=== PATIENT | male | born 1975 | race Caucasian/White ===

== ENCOUNTER 2017-02-22 16:01 | Emergency (ER) | payer OTHER ==
[2017-02-22 16:05] VITALS: BP 138/85; RESP 20; TEMP 97.8
[2017-02-22] MEDS ORDERED: ASPIRIN 81 MG CHEW PO STA (16:36)
[2017-02-22] MEDS ORDERED: SODIUM CHLORIDE 0.9% 500 ML IV STA (16:36)
[2017-02-22] MEDS ORDERED: MORPHINE SULFATE 2 MG/ML SYRINGE IVP STA (16:36)
[2017-02-22 16:39] VITALS: PULSE 85
--- NOTE | 2017-02-22 16:40 | ED ---
Chest Pain HPI - General Chief Complaint: Chest Pain Stated Complaint: Chest pain Time Seen by Provider: 02/22/17 16:16 Source: patient, RN notes reviewed Mode of arrival: ambulatory Limitations: no limitations - History of Present Illness Initial Comments: Patient is a 41-year-old male presents emergency room for evaluation of chest pain. Patient states he had an upper respiratory infection about a week and a half ago. Patient states last about 3 days. Patient states he is continuing to have a sharp midsternal chest pain that radiates to the left side. Patient states been having increasing mid sternal/left sided chest pain over the weekend. Patient states pain is worse whenever he takes a deep breath or moves. Patient states pain is worse when he sits down. Patient denies smoking. Patient states that he feels short of breath secondary to pain. Patient denies any cardiac history. Patient denies any significant past medical history. Patient denies any family cardiac history. Patient denies any cough. Patient states that he feels like his rib is broken and feels a pressure-like sensation over his chest. Patient states that having on and off headaches. Patient denies dizziness. Patient denies nausea or vomiting. Patient denies fevers or chills. Patient states he's never had pain like this in the past. - Related Data Home Medications Medication Instructions Recorded Confirmed Fish Oil Liquid 15 ml PO QAM 02/22/17 02/22/17 Potassium 198 mg PO BID 02/22/17 02/22/17 Previous Rx's Medication Instructions Recorded Ibuprofen [Motrin] 600 mg PO Q6HR PRN #20 tab 02/22/17 Allergies Allergy/AdvReac Type Severity Reaction Status Date / Time No Known Allergies Allergy Verified 02/22/17 16:28 Review of Systems ROS Statement: Those systems with pertinent positive or pertinent negative responses have been documented in the HPI. ROS Other: All systems not noted in ROS Statement are negative. EKG Findings - EKG Comments: EKG Findings:: Normal sinus rhythm, ventricular rate 82 bpm, TN interval 166 ms , QRS duration 102 ms, QT/QTC 372/434 ms, T-wave inversion in leads III and aVF Past Medical History Past Medical History: No Reported History History of Any Multi-Drug Resistant Organisms: None Reported Past Surgical History: No Surgical Hx Reported Past Psychological History: No Psychological Hx Reported Smoking Status: Never smoker Past Alcohol Use History: None Reported Past Drug Use History: None Reported General Exam - General Exam Comments Initial Comments: Sitting in exam room, no acute distress. Limitations: no limitations General appearance: alert, in no apparent distress Head exam: Present: atraumatic, normocephalic, normal inspection Eye exam: Present: normal appearance ENT exam: Present: normal exam Neck exam: Present: normal inspection Respiratory exam: Present: normal lung sounds bilaterally, chest wall tenderness (Reproducable midsternal and left sided anterior wall tenderness on palpation). Absent: respiratory distress Cardiovascular Exam: Present: regular rate, normal rhythm, normal heart sounds GI/Abdominal exam: Present: soft, normal bowel sounds. Absent: distended, tenderness, guarding, rebound, rigid Extremities exam: Present: normal inspection Back exam: Present: normal inspection Neurological exam: Present: alert, oriented X3, CN II-XII intact, normal gait Psychiatric exam: Present: normal affect, normal mood Skin exam: Present: warm, dry, intact, normal color. Absent: rash Course Vital Signs 02/22/17 02/22/17 16:02 16:39 Temperature 97.8 F Pulse Rate 84 Pulse Rate [ 85 Dbas ] Respiratory 20 Rate Blood Pressure 138/85 O2 Sat by Pulse 100 Oximetry Chest Pain MDM - MDM Patient is a 41-year-old male presents to the emergency room for evaluation of sharp chest pain. Patient does state pain is worse when he takes a deep breath and palpates over his sternum. EKG suspicious for some T-wave inversions. No EKG to compare. Labs and cardiac enzymes within normal limits. Results discussed with patient. Patient advised tp stay for observation for repeat cardiac enzymes. Patient states he wants to be discharged home. Risks including possible [place] and discussed with patient. Patient states he understands. Patient will be given primary care provider and bag machine adjuster to follow-up with. Return parameters discussed. Case discussed with Dr. Nye. Disposition Clinical Impression: Atypical chest pain, Costochondral chest pain Disposition: Left Against Medical Advice Condition: Stable Instructions: Chest Pain (ED), Costochondritis (ED) Additional Instructions: Take an aspirin daily. Take Tylenol or Motrin as needed for discomfort. Please follow up with primary care provider and bag machine adjuster in 24-48 hours for reevaluation. If any new symptom arises or symptoms worsen, return to ER as soon as possible. Prescriptions: Ibuprofen [Motrin] 600 mg PO Q6HR PRN #20 tab PRN Reason: Pain Referrals: Shanna Mckenzie MD [STAFF PHYSICIAN] - 1-2 days Sarah Marsh MD [STAFF PHYSICIAN] - 1-2 days Time of Disposition: 18:00
[2017-02-22 16:50] LABS: Basophils # (A) 0.1 k/uL (0-0.2); Basophils % (A) 1 %; CH 29.2; CHCM 34.5; Eosinophils # (A) 0.2 k/uL (0-0.7); Eosinophils % (A) 2 %; HDW 2.58; HGB 16.4 gm/dL (13.0-17.5); Luc # (Auto) 0.14; Luc % (Auto) 2; Lymphocytes # (A) 2.9 k/uL (1.0-4.8); Lymphocytes % (A) 32 %; MCH 29.1 pg (25.0-35.0); MCHC 34.2 g/dL (31.0-37.0); MCV 85.1 fL (80.0-100.0); Mean Platelet Volume 6.2; Monocytes # (A) 0.4 k/uL (0-1.0); Monocytes % (A) 4 %; Neutrophils # (A) 5.5 k/uL (1.3-7.7); Neutrophils % (A) 60 %; RBC 5.65 m/uL (4.30-5.90); RDW 12.2 % (11.5-15.5); WBC 9.1 k/uL (3.8-10.6); WBC (Perox) 8.85
[2017-02-22 16:59] LABS: ALT 91 U/L (21-72); AST 54 U/L (17-59); Alkaline Phosphatase 80 U/L (38-126); Anion Gap 12 mmol/L; Blood Urea Nitrogen 19 mg/dL (9-20); Calcium 9.7 mg/dL (8.4-10.2); Carbon Dioxide 24 mmol/L (22-30); Chloride 103 mmol/L (98-107); Glucose 86 mg/dL (74-99); Magnesium 2.1 mg/dL (1.6-2.3); Non-African American GFR(MDRD) >60 (>60 ml/min/1.73 sqM); Potassium 4.5 mmol/L (3.5-5.1); Sodium 139 mmol/L (137-145); Total Bilirubin 0.9 mg/dL (0.2-1.3); Total Protein 8.4 g/dL (6.3-8.2)
[2017-02-22 17:02] LABS: Partial Thromboplastin Time 25.8 sec (22.0-30.0); Prothrombin Time 10.5 sec (9.0-12.0)
[2017-02-22 17:11] LABS: Creatine Kinase 359 U/L (55-170)
--- NOTE | 2017-02-22 17:16 | XR ---
EXAMINATION TYPE: XR chest 2V DATE OF EXAM: 02/22/2017 COMPARISON: NONE INDICATION: Chest pain TECHNIQUE: Frontal and lateral views of the chest are obtained. FINDINGS: The heart size is normal. The pulmonary vasculature is normal. The lungs are clear. IMPRESSION: 1. No acute pulmonary process.
[2017-02-22 17:23] LABS: Creatine Kinase MB 2.4 ng/mL (0.0-2.4); Troponin I <0.012 ng/mL (0.000-0.034)
== END 2017-02-22 18:50 | disposition left against medical advice (07) ==
LOC: EC 16:01
DX: R07.1 Chest pain on breathing (principal); R06.02 Shortness of breath; R51 Headache; Z79.899 Other long term (current) drug therapy
CPT/HCPCS: 36415; 71020; 80053; 82550; 82553; 83735; 84484; 85025; 85379; 85610; 85730; 93005; 96360; 99285